=== PATIENT | male | born 1985 | race African-American/Black ===

== ENCOUNTER 2021-10-20 10:52 | Emergency (ER) | payer MEDICAID ==
[~2021-10-20] VITALS: Ht 185.4 cm; Wt 82.0 kg
[2021-10-20 11:05] VITALS: BP 134/86
== END 2021-10-20 16:36 | disposition left against medical advice (07) ==
LOC: ER 10:52
DX: Z53.21 Procedure and treatment not carried out due to patient leaving prior to being seen by health care provider (principal); R20.0 Anesthesia of skin; R20.2 Paresthesia of skin; R39.15 Urgency of urination; R35.0 Frequency of micturition

== ENCOUNTER 2021-10-22 07:15 | Emergency (ER) | payer MEDICAID ==
[~2021-10-22] VITALS: Ht 185.4 cm; Wt 82.0 kg
[2021-10-22] MEDS ORDERED: KETOROLAC 60MG/2ML VIAL IM ONE (09:00)
[2021-10-22 09:19] LABS: CLARITY URINE CLEAR (CLEAR); COLOR URINE YELLOW (YELLOW); KETONES URINE NEGATIVE (NEGATIVE); LEUKOCYTE ESTERASE URINE NEGATIVE (NEGATIVE); NITRITE URINE NEGATIVE (NEGATIVE); OCCULT BLOOD URINE NEGATIVE (NEGATIVE); PH URINE 5.5 (4.5-8.0); PROTEIN URINE NEGATIVE (NEGATIVE); SPECIFIC GRAVITY URINE 1.018 (1.005-1.030); UROBILINOGEN URINE 0.2 E.U./dL (0.2-1.0)
[2021-10-22] MEDS ORDERED: IBUP-2029 MT (10:32)
[2021-10-22] MEDS ORDERED: CYCL10TA7 MT (10:32)
[2021-10-22 10:42] VITALS: BP 118/81
== END 2021-10-22 10:43 | disposition home or self-care (01) ==
LOC: ER 07:15
DX: M54.16 Radiculopathy, lumbar region (principal)
CPT/HCPCS: 72131; 81003; 96372; 99284; J1885; A4565

== ENCOUNTER 2024-07-21 09:47 | Emergency (ER) | payer BC, MEDICAID ==
[~2024-07-21] VITALS: Ht 185.4 cm; Wt 90.0 kg
[~2024-07-21 09:47] MED LIST: CYCL10TA21 MT; IBUP-2029 MT
[2024-07-21 09:53] VITALS: O2SAT 97
[2024-07-21 10:24] VITALS: BP 124/91; PULSE 73; RESP 18; TEMP 98; O2SAT 99
[2024-07-21 10:43] LABS: BASOPHILS % 0.5 % (0.0-2.0); EOSINOPHILS % 0.1 % (0.0-5.0); HEMATOCRIT. 49.1 % (42.0-52.0); HEMOGLOBIN. 16.2 g/dL (14.0-18.0); LYMPHOCYTES % 24.1 % (20.0-50.0); MEAN CORPUSCULAR HEMOGLOBIN 29.1 pg (28.0-32.0); MEAN CORPUSCULAR VOLUME 88.1 fL (80.0-94.0); MONOCYTES % 4.4 % (2.0-8.0); NEUTROPHILS % 70.9 % (40.0-76.0); PLATELET 237 x1000/uL (130-400); RED BLOOD CELL COUNT 5.57 mill/uL (4.7-6.1); RED CELL DISTRIBUTION WIDTH 14.3 % (11.6-14.6); WHITE BLOOD COUNT 7.3 x1000/uL (4.5-11.0)
[2024-07-21] MEDS ORDERED: DICYCLOMINE 10 MG/5 ML ORAL SYR PO STA (10:43)
[2024-07-21 10:49] LABS: CHLORIDE 100 mEq/L (98-107); POTASSIUM 4.1 mEq/L (3.5-5.1); SODIUM 136 mEq/L (136-145)
[2024-07-21 10:50] LABS: CARBON DIOXIDE 25 mEq/L (21-32)
[2024-07-21] MEDS: MAGNESIUM/ALUMINUM HYDROXIDE/SIMETHICONE 30ML UDC PO STA (10:50)
[2024-07-21] MEDS: MECLIZINE 25MG TABLET PO ONE (10:50)
[2024-07-21] MEDS: ONDANSETRON 4MG ODT PO STA (10:50)
[2024-07-21 10:55] LABS: CREATININE 1.1 mg/dL (0.6-1.3); GLUCOSE 73 mg/dL (70-105); UREA NITROGEN BLOOD 10 mg/dL (9-23)
[2024-07-21 10:57] LABS: ALANINE AMINOTRANSFERASE 15 IU/L (10-49); ALBUMIN 4.8 g/dL (3.2-4.8); ASPARTATE AMINOTRANSFERASE 17 IU/L (<34); BILIRUBIN DIRECT 0.4 mg/dL (<=3.0); BILIRUBIN TOTAL 1.5 mg/dL (0.1-1.0); PROTEIN TOTAL 7.9 g/dL (6.0-8.3)
[2024-07-21] MEDS: DICYCLOMINE HCL 10MG CAPSULE PO NR (11:12)
[2024-07-21 11:19] LABS: CLARITY URINE CLEAR (CLEAR); COLOR URINE YELLOW (YELLOW); GLUCOSE URINE NEGATIVE (NEGATIVE); KETONES URINE 4+ (NEGATIVE); LEUKOCYTE ESTERASE URINE NEGATIVE (NEGATIVE); NITRITE URINE NEGATIVE (NEGATIVE); OCCULT BLOOD URINE NEGATIVE (NEGATIVE); PROTEIN URINE NEGATIVE (NEGATIVE); SPECIFIC GRAVITY URINE 1.025 (1.005-1.030)
[2024-07-21] MEDS ORDERED: MECL-299 MT (12:25)
[2024-07-21] MEDS ORDERED: ONDA4TAB50 MT (12:25)
== END 2024-07-21 13:06 | disposition home or self-care (01) ==
LOC: ER 09:47
DX: K52.9 Noninfective gastroenteritis and colitis, unspecified (principal); F32.A Depression, unspecified
CPT/HCPCS: 99284; 80076; 80048; 81003; 83690; 85025; 36415; J8597; Q0162

== ENCOUNTER 2025-07-25 20:07 | Emergency (ER) | payer BC ==
[~2025-07-25] VITALS: Ht 185.4 cm; Wt 87.0 kg
[~2025-07-25 20:07] MED LIST changes: +IBUP-1455 MT; -IBUP-2029 MT; +MECL-299 MT; +ONDA4TAB50 MT
[2025-07-25 20:34] VITALS: O2SAT 99
[2025-07-25] MEDS ORDERED: KETOROLAC 30MG/ML VIAL IM ONE (22:45)
[2025-07-25] MEDS ORDERED: KETO10TA2 MT (23:45)
[2025-07-25] MEDS ORDERED: AMOX1TAB16 MT (23:45)
[2025-07-26 00:59] VITALS: BP 127/79; PULSE 83; RESP 18; TEMP 36.8; O2SAT 100
== END 2025-07-26 01:13 | disposition home or self-care (01) ==
LOC: ER 20:07
DX: K04.7 Periapical abscess without sinus (principal); F32.A Depression, unspecified; Z79.899 Other long term (current) drug therapy
CPT/HCPCS: 99283